=== PATIENT | female | born 2005 | race Caucasian/White ===

== ENCOUNTER 2025-03-26 22:03 | Emergency (ER) | payer BC, SELFPAY ==
--- NOTE | ~2025-03-26 | XR_ITS ---
CLINICAL HISTORY: pain 3 view right ankle Comparison: None provided Findings: No acute fractures. Ankle mortise intact. Possible small right ankle effusion. No radiopaque foreign body. IMPRESSION: 1. No acute fracture or dislocation injury identified at the right ankle. This document has been electronically signed by: Librado Oviedo MD on 03/26/2025 22:43:03
--- NOTE | ~2025-03-26 | XR_ITS ---
CLINICAL HISTORY: pain 3 view right foot Comparison: None provided Findings: Bones intact. No dislocations. No radiopaque foreign body. IMPRESSION: 1. No acute fracture or dislocation injury identified at the right foot. This document has been electronically signed by: Librado Oviedo MD on 03/26/2025 22:42:13
[2025-03-26 22:06] VITALS: BP 109/74; PULSE 81; RESP 18; TEMP 36.3; O2SAT 97; BMI 28.3
--- NOTE | 2025-03-26 23:10 | ED.LOWEXIN ---
HPI - Extremity Injury (Lower) General Chief Complaint: Extremity Injury, Lower Stated Complaint: rolled right ankle Time Seen by Provider: 03/26/25 22:48 History of Present Illness ED Provider: Dewey Johansen MD HPI Narrative: 19-year-old female with ankle injury. Patient was playing volleyball she said she jumped up and then came down landing on the base of the neck which has a round structures she inverted her ankle and feels pain throughout the bilateral malleolar region and anteriorly at the ankle. No swelling no numbness tingling weakness. She has significant pain trying to bear weight on this. No bruising no skin breaks no other injuries sustained Related Data Allergies Allergy/AdvReac Type Severity Reaction Status Date / Time No Known Allergies Allergy Verified 03/26/25 22:09 [facility] Social History Social History Advance Directives: No Advance Directives Information Provided: Yes Do you have a plan to hurt others: No Plan Physical Exam Exam: Exam: GENERAL: Well appearing. No apparent distress. Alert. HEAD/NECK: No visual trauma. EYES: Normal to inspection. No conjunctival erythema. No discharge. ENMT: Hearing grossly normal. External nose normal. RESPIRATORY: Respiratory effort normal. CARDIOVASCULAR: Additional details (Grossly well perfused). SKIN: No jaundice. NEUROLOGICAL: Alert. Moving all extremities x4. Additional details (No gross motor deficits. Normal tone. ). PSYCHIATRIC: Alert. Appearance appropriate for situation. MSK: Moderate tenderness bilateral posterior malleoli with no gross bony deformity or instability of the ankle joint. Neurovascularly intact well-perfused digit no focal bony or calcaneal tenderness in the foot leg compartments soft no mid or proximal tibia or fibula tenderness Vital Signs: Vital Signs: Last Vital Signs Temp 97.4 F 03/26/25 22:06 Pulse 81 03/26/25 22:06 Resp 18 03/26/25 22:06 BP 109/74 03/26/25 22:06 Pulse Ox 97 03/26/25 22:06 O2 Del Method Room Air 03/26/25 22:06 BMI result Body Mass Index 28.3 Medications Administered Discontinued Medications Generic Name Dose Route Start Last Admin Trade Name Freq PRN Reason Stop Dose Admin Ibuprofen 600 mg 03/26/25 23:45 03/27/25 00:18 Ibuprofen 600 Mg Tablet PO 03/26/25 23:46 600 mg ONCE ONE Administration Medical Decision Making Medical Decision Making MDM Narrative: Medical Decision Makin-year-old healthy female with inversion ankle injury of the right side. Neurovascularly intact. Soft compartments. X-ray ankle and foot without acute bony fracture. Likely moderate talofibular ankle sprain. Tall boot weightbearing as tolerated ice rest elevation close follow up PCP and/or Orthopedics if pain persists severely. Preliminary Favored Differential Diagnosis: Ankle sprain among additional considered etiologies Testing Interpreted Independently: ?See below for details Radiology or Lab testing Results Reviewed: ?See below for details Consults: ?See below for details Independent Historians/External Chart Reviews: ?See below for details Social Determinants of Health Impacting MDM/Planning: ?See below for details Independent Interpretation I performed an independent interpretation of an: Plain X-Ray (Foot and ankle x-ray reviewed no fracture well aligned mortise) Discharge Plan Discharge Clinical Impression: Ankle sprain and strain Patient Disposition: Home, Self-Care Instructions: Ankle Sprain (ED), Walking Boot (ED) Additional Instructions: As we discussed keep your leg elevated use ice as needed ibuprofen or Tylenol for pain. Can use the walking boot daily bear weight as tolerated on the leg. If you having severe pain significant swelling limited walking or bearing weight on the leg after 7-10 days you should call orthopedics for follow up as you may need further evaluation Referrals: [facility] [Provider Group, Physiatry] Stand Alone Forms: Work/School Release Print Language: Ghanaian
--- OUTSIDE RECORDS SUMMARY | 2025-03-26 23:22 | XMS_ITS | Encounter Summary ---
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 [address] [place] [address] Social History Tobacco Use Types Packs/Day Years Used Date Smoking Tobacco: Never Assessed Comments Unknown Sex and Gender Information Value Date Recorded Sex Assigned at Not on file Legal Sex Female 4:26 PM EDT Gender Identity Not on file Sexual Orientation Not on file documented as of this encounter Plan of Treatment Not on file documented as of this encounter Visit Diagnoses Not on filedocumented in this encounter Care Teams Manager Event Relationship Specialty Start Date End Date Maria Luz Shannon MD [address] [place] [address] PCP - General Pediatrics 10/27/17 04/02/22 documented as of this encounter
--- OUTSIDE RECORDS SUMMARY | 2025-03-26 23:22 | XMS_ITS ---
Author Name [facility] Organization Unknown Care Team Organization Name Specialty Phone Email Start Date End [employer] te [employer] 01/29/2025
[2025-03-27 00:30] VITALS: BP 111/72; PULSE 79; RESP 18; TEMP 36.5; O2SAT 99
== END 2025-03-27 00:30 | disposition home or self-care (01) ==
PROVIDERS: Emergency Provider Emergency Medicine
DX: S93.401A Sprain of unspecified ligament of right ankle, initial encounter (principal); M25.572 Pain in left ankle and joints of left foot; M25.571 Pain in right ankle and joints of right foot; W19.XXXA Unspecified fall, initial encounter; Y93.68 Activity, volleyball (beach) (court); Y92.9 Unspecified place or not applicable; Y99.9 Unspecified external cause status
CPT/HCPCS: 73610; 73630; 99283

== ENCOUNTER → 2025-03-26 22:12 | Outpatient (BNV) | payer OTHER, MEDICAID, SELFPAY | PROVIDERS: Emergency Provider Emergency Medicine; Visit Provider Radiology Diagnostic Radiology | DX: M25.571 Pain in right ankle and joints of right foot (principal); M79.671 Pain in right foot | CPT/HCPCS: 73610; 73630 ==